=== PATIENT | male | born 1965 | race African-American/Black ===

== ENCOUNTER 2017-11-28 02:18 | Emergency (ER) | payer SELFPAY ==
[2017-11-28 02:23] VITALS: BP 173/107; PULSE 96; TEMP 98.4; BMI 34.2
--- NOTE | 2017-11-28 02:25 | PDOC ---
History of Present Illness - General Chief Complaint: Hives Stated Complaint: HIVES Time Seen by Provider: 11/28/17 02:20 - History of Present Illness Initial Comments: This otherwise healthy 52-year-old man presents with several hour history of pruritic rash. Patient states that he was handling large storage boxes earlier this evening(patient and his have recently moved) when he began to feel itching on his body. He then developed a raised rash on his arms and legs. He denies any lip or tongue swelling . He has no history of difficulty swallowing or breathing. He presents to the ER because of persistent pruritic rash. Over the last few days , the patient has had subjective fever/sweating, malaise and body aches. The patient states that this has improved spontaneously without any progression of symptoms. Also, he began new formulation of multivitamin a few weeks ago. Other than that, he has had no exposure to new medications or foods over the last several days. No antihistamine or other medication was taken since the onset of the rash Past History - Past Medical History Allergies/Adverse Reactions: Allergies Allergy/AdvReac Type Severity Reaction Status Date / Time No Known Allergies Allergy Verified 10/01/12 15:51 Home Medications: Ambulatory Orders Multivitamins [Tab-A-Vit -] 1 tab PO DAILY 11/28/17 COPD: No - Suicide/Smoking/Psychosocial Hx Smoking Status: No Smoking History: Never smoked Number of Cigarettes Smoked Daily: 0 Review of Systems - Review of Systems Able to Perform ROS?: Yes Comments:: 12 point review of systems is negative except for what is noted in the history of present illness *Physical Exam - Vital Signs Last Vital Signs Temp Pulse Resp BP Pulse Ox 98.4 F 96 H 16 173/107 99 11/28/17 02:21 11/28/17 02:21 11/28/17 02:21 11/28/17 02:21 11/28/17 02:21 - Physical Exam Comments: GENERAL: Adult male, alert and oriented 3 in no acute distress; no respiratory distress and vital signs as noted HEAD: Normal with no signs of trauma. EYES: PERRLA, EOMI, sclera anicteric, conjunctiva clear. ENT: Ears normal, nares patent, oropharynx clear without exudates. Moist mucous membranes. No lip/tongue/uvular edema NECK: Normal range of motion, supple without lymphadenopathy, JVD, or masses. No stridor LUNGS: Breath sounds equal, clear to auscultation bilaterally. No wheezes, and no crackles. HEART:Regular rate and rhythm, normal S1 and S2 without murmur, rub or gallop. ABDOMEN:.normal bowel sounds No guarding,tenderness or rebound.No masses No distention. EXTREMITIES: Normal range of motion, no edema. No clubbing or cyanosis. No erythema, or tenderness. NEUROLOGICAL: Cranial nerves II through XII grossly intact. Normal speech. No focal neurological deficits. MUSCULOSKELETAL: Back non-tender to palpation, no CVA tenderness SKIN: Erythematous, maculopapular rash consistent with urticaria of face/neck/ anterior chest/back/abdomen/extremities Progress Note - Progress Note Progress Note: This 52-year-old man without significant past medical history presents with several hour history of urticaria. No evidence of airway compromise with no symptomatic difficulty swallowing/breathing. Exam notable for urticarial rash but no upper airway edema Etiology of the urticaria is unclear. Patient appears to have had a viral syndrome that he is recovering from all the last few days, which may have contributed to the onset of the urticarial rash. Also he started a new formulation of vitamins in the recent past. Because there is no evidence of airway compromise, there is no urgent need for corticosteroids. Patient will be given diphenhydramine 25 mg now with instructions to continue this medication as needed every 4-6 hours. His PMD is he should follow-up with him within the next 2-3 days. He should return to the emergency room immediately if he has any swelling of his lip or tongue or experiences difficulty swallowing/breathing *DC/Admit/Observation/Transfer Diagnosis at time of Disposition: Urticaria - Discharge Dispostion Disposition: HOME Condition at time of disposition: Stable - Referrals Referrals: José Baca MD [Staff Physician] - 3 days - Patient Instructions Printed Discharge Instructions: Hives Additional Instructions: Stop vitamins as discussed Rest; drink plenty of fluids Benadryl 25 mg every 4 hours as needed for itching/rash Return to ER immediately if you have any difficulty swallowing/breathing or you have lip/tongue swelling Follow-up with Dr. Baca within the next 3-4 days - Post Discharge Activity
[2017-11-28] MEDS ORDERED: diphenhydrAMINE HCL 25 MG CAPSULE (FP) PO ONE ×3 (02:37→02:43)
[2017-11-28] MEDS ORDERED: diphenhydrAMINE HCL 50 MG CAPSULE ONE (02:38)
== END 2017-11-28 02:44 | disposition home or self-care (01) ==
LOC: FER 02:18
CPT/HCPCS: 99281-25